=== PATIENT | female | born 1950 | race Two or more races ===

== ENCOUNTER 2017-08-02 12:59 | Outpatient (CLI) | payer OTHER | END 2017-08-02 13:10 | disposition home or self-care (01) | LOC: MAMO-SONO 12:59 | DX: Z12.31 Encounter for screening mammogram for malignant neoplasm of breast (principal); Z87.898 Personal history of other specified conditions; N60.11 Diffuse cystic mastopathy of right breast; N60.12 Diffuse cystic mastopathy of left breast ==

== ENCOUNTER 2018-08-31 10:38 | Outpatient (CLI) | payer OTHER | END 2018-08-31 10:45 | disposition home or self-care (01) | LOC: MAMO-SONO 10:38 | DX: Z12.31 Encounter for screening mammogram for malignant neoplasm of breast (principal); Z87.898 Personal history of other specified conditions; R92.1 Mammographic calcification found on diagnostic imaging of breast ==

== ENCOUNTER 2020-03-21 13:17 | Outpatient (CLI) | payer OTHER | END 2020-03-21 13:30 | disposition home or self-care (01) | LOC: MAMO-SONO 13:17 | PROVIDERS: ATTEND Specialist | DX: Z12.31 Encounter for screening mammogram for malignant neoplasm of breast (principal); N64.59 Other signs and symptoms in breast; R92.1 Mammographic calcification found on diagnostic imaging of breast ==

== ENCOUNTER 2021-04-23 08:42 | Outpatient (CLI) | payer OTHER ==
[~2021-04-23 08:42] MED LIST: SYNTHROID100 MCG PO
== END 2021-04-23 08:51 | disposition home or self-care (01) ==
LOC: MAMO-SONO 08:42
PROVIDERS: ATTEND Specialist
DX: R92.0 Mammographic microcalcification found on diagnostic imaging of breast (principal)

== ENCOUNTER 2022-05-12 10:57 | Outpatient (CLI) | payer OTHER | END 2022-05-12 11:04 | disposition home or self-care (01) | LOC: MAMO-SONO 10:57 | PROVIDERS: ATTEND Obstetrics & Gynecology Gynecology | DX: N60.11 Diffuse cystic mastopathy of right breast (principal); N60.12 Diffuse cystic mastopathy of left breast ==

== ENCOUNTER 2023-05-26 08:00 | Outpatient (CLI) | payer OTHER | END 2023-05-26 08:09 | disposition home or self-care (01) | LOC: MAMO-SONO 08:00 | PROVIDERS: ATTEND Specialist | DX: N60.12 Diffuse cystic mastopathy of left breast (principal); Z12.31 Encounter for screening mammogram for malignant neoplasm of breast ==